=== PATIENT | male | born 1940 | race Caucasian/White ===

== ENCOUNTER 2022-07-28 17:03 | Emergency (ER) | payer BC, MEDICARE ==
[~2022-07-28] VITALS: Ht 180.3 cm; Wt 97.2 kg
[~2022-07-28 17:03] MED LIST: AMLO5TAB PO; ASPI-1265 PO; CLOP-32 PO; EVOL140P3 SQ; FLUO15OI2 TP; HYDR25TA4 PO; METO50TA17 PO; OMEP20TA43 PO
[2022-07-28 17:19] VITALS: BP 164/83
[2022-07-28 17:27] LABS: BASOPHILS # (AUTO) 0.1 X10'3 (0-0.2); BASOPHILS % (AUTO) 1.1 % (0-1); EOSINOPHILS # (AUTO) 0.5 X10'3 (0-0.9); EOSINOPHILS % (AUTO) 4.7 % (0-6); LYMPHOCYTES # (AUTO) 2.4 X10'3 (1.1-4.8); LYMPHOCYTES % (AUTO) 21.7 % (21-51); MEAN CORPUSCULAR HEMOGLOBIN 31.8 PG (27.0-31.0); MEAN CORPUSCULAR HGB CONC 33.4 g/dL (33.0-36.5); MEAN CORPUSCULAR VOLUME 95.3 FL (78-98); MEAN PLATELET VOLUME 9.1 FL (7.4-10.4); MONOCYTES # (AUTO) 0.9 X10'3 (0-0.9); NEUTROPHILS % (AUTO) 64.5 % (42-75); PLATELET COUNT 188 X10'3 (140-440); RED BLOOD COUNT 5.35 X10'6 (4.70-6.10); RED CELL DISTRIBUTION WIDTH 13.6 % (11.5-14.5); WHITE BLOOD COUNT 10.9 X10'3 (4.5-11.0)
[2022-07-28 18:18] LABS: ALANINE AMINOTRANSFERASE 25 U/L (12-78); ALBUMIN 4.2 G/DL (3.4-5.0); ALBUMIN/GLOBULIN RATIO 1.4 (1.1-1.5); ALKALINE PHOSPHATASE 80 IU/L (46-116); ANION GAP 7 (8-16); ASPARTATE AMINO TRANSFERASE 19 U/L (10-37); BILIRUBIN,TOTAL 0.9 MG/DL (0.1-1.0); BLOOD UREA NITROGEN 26 MG/DL (7-18); BUN/CREATININE RATIO 18.4 (10.0-20.0); CHLORIDE 102 MMOL/L (99-107); CREATININE 1.41 MG/DL (0.60-1.10); GLUCOSE 112 MG/DL (70-104); POTASSIUM 4.3 MMOL/L (3.5-5.1); SODIUM 138 MMOL/L (135-145); TOTAL CARBON DIOXIDE 29.4 MMOL/L (24-32); TOTAL PROTEIN 7.3 G/DL (6.4-8.2); eGFR 48 ML/MIN
[2022-07-28 18:27] LABS: MAGNESIUM 2.3 MG/DL (1.5-2.4)
== END 2022-07-28 22:01 | disposition home or self-care (01) ==
LOC: ER 17:04
DX: R07.9 Chest pain, unspecified (principal); I11.0 Hypertensive heart disease with heart failure; E78.00 Pure hypercholesterolemia, unspecified; E11.9 Type 2 diabetes mellitus without complications; F31.9 Bipolar disorder, unspecified; Z88.0 Allergy status to penicillin; Z79.899 Other long term (current) drug therapy
CPT/HCPCS: 36415; 71045; 80053; 83735; 83880; 84484; 85025; 93005; 99285

== ENCOUNTER 2024-03-26 05:42 | Day surgery (SDC) | payer MEDICARE, BC ==
[2024-03-20 14:56] LABS: BASOPHILS # (AUTO) 0.1 X10'3 (0-0.2); BASOPHILS % (AUTO) 0.6 % (0-1); EOSINOPHILS # (AUTO) 0.5 X10'3 (0-0.9); EOSINOPHILS % (AUTO) 4.3 % (0-6); LYMPHOCYTES # (AUTO) 1.8 X10'3 (1.1-4.8); LYMPHOCYTES % (AUTO) 17.2 % (21-51); MEAN CORPUSCULAR HEMOGLOBIN 32.3 PG (27.0-31.0); MEAN CORPUSCULAR HGB CONC 33.6 g/dL (33.0-36.5); MEAN CORPUSCULAR VOLUME 96.2 FL (78-98); MEAN PLATELET VOLUME 8.8 FL (7.4-10.4); MONOCYTES # (AUTO) 0.9 X10'3 (0-0.9); NEUTROPHILS # (AUTO) 7.5 X10'3 (1.8-7.7); NEUTROPHILS % (AUTO) 69.9 % (42-75); PRE OP HEMATOCRIT 48.4 % (42.0-52.0); PRE OP HEMOGLOBIN 16.3 g/dL (14.0-17.9); PRE OP PLATELET COUNT 203 X10'3 (140-440); PRE OP WHITE BLOOD COUNT 10.7 10'3 (4.8-10.8); RED BLOOD COUNT 5.03 X10'6 (4.70-6.10); RED CELL DISTRIBUTION WIDTH 13.1 % (11.5-14.5)
[2024-03-20 15:14] LABS: ALBUMIN 3.9 G/DL (3.4-5.0); ALBUMIN/GLOBULIN RATIO 1.2 (1.1-1.5); ALKALINE PHOSPHATASE 87 IU/L (46-116); BLOOD UREA NITROGEN 30 MG/DL (7-18); BUN/CREATININE RATIO 18.8 (10.0-20.0); CALCIUM 9.6 MG/DL (8.5-10.1); CHLORIDE 102 MMOL/L (99-107); PRE OP ALT 29 U/L (30-65); PRE OP ANION GAP 6 (8-16); PRE OP AST 19 U/L (10-37); PRE OP BILIRUB, TOTAL 0.5 MG/DL (0.0-1.0); PRE OP GLUCOSE 106 MG/DL (70-104); PRE OP POTASSIUM 4.3 MMOL/L (3.4-5.1); PRE OP SODIUM 136 MMOL/L (135-145); TOTAL CARBON DIOXIDE 28.5 MMOL/L (24-32); TOTAL PROTEIN 7.2 G/DL (6.4-8.2); eGFR 42 ML/MIN
[2024-03-26] VITALS (24 sets, daily range): BP systolic 89–144; BP diastolic 44–74; PULSE 54–85; RESP 10–21; TEMP 97.7; O2SAT 86–100
[~2024-03-26] VITALS: Ht 177.8 cm; Wt 95.7 kg
[~2024-03-26 05:42] MED LIST changes: -AMLO5TAB PO; -ASPI-1265 PO; +ASPI81TA52 PO; +CHLO50TA PO; -CLOP-32 PO; -EVOL140P3 SQ; -FLUO15OI2 TP; -HYDR25TA4 PO; +LOSA100T58 PO; -METO50TA17 PO; -OMEP20TA43 PO; +STOOL SOFTENER PO; +VITAMIN B-12 PO; +VITAMIN D3 PO; +VITAMIN K2 PO
[2024-03-26] MEDS: famotidine 20mg tablet PO ONE (06:25)
[2024-03-26] MEDS: tamsulosin 0.4mg capsule PO ONE (06:25)
[2024-03-26] MEDS: ringers solution, lacted 1,000 ML IV SCH (06:26)
[2024-03-26] MEDS: ceFAZolin 2gm in dextrose, iso 50 ML IV ONE (06:26)
[2024-03-26] MEDS ORDERED: BUPIVAcaine 2.5mg/ml inj 50ml vial (contains preservative) ONE (06:54)
[2024-03-26] MEDS ORDERED: LIDOcaine 1% 30ml preserv. free vial ONE (06:54)
[2024-03-26] MEDS ORDERED: fentaNYL/PF 50MCG/1 ML 2ML syringe ONE (07:13)
[2024-03-26] MEDS ORDERED: midazolam 1 mg/ML 2ml injection ONE (07:13)
[2024-03-26] MEDS ORDERED: meperidine/PF 25mg/ml syringe IV PRN ×2 (07:20)
[2024-03-26] MEDS ORDERED: morphine 4 MG/ML inj SYRINge IV PRN (07:20)
[2024-03-26] MEDS ORDERED: proCHLORperazine 10 MG/2 ml inj IV PRN (07:20)
[2024-03-26] MEDS ORDERED: morphine 2 MG/ML inj. syringe IV PRN (07:20)
[2024-03-26] MEDS ORDERED: ringers solution, lacted 1,000 ML IV SCH (07:20)
[2024-03-26] MEDS ORDERED: sevoflurane 250ml liquid IH ONE (07:26)
[2024-03-26] MEDS: BUPIVAcaine 0.25% w/Epi /PF 30ml vial IJ ONE (07:50)
[2024-03-26] MEDS ORDERED: dexamethasone sod phosphate 4mg/ml inj. ONE (09:01)
[2024-03-26] MEDS ORDERED: neostigmine methylsulfate 1 MG/ML 10ml vial ONE (09:02)
[2024-03-26] MEDS ORDERED: ondansetron/PF 4mg/2ml inj ONE (09:02)
[2024-03-26] MEDS ORDERED: propofol inj 20 ML IV ONE (09:02)
[2024-03-26] MEDS ORDERED: glycopyrrolate 0.2mg/ml inj ONE (09:02)
[2024-03-26] MEDS ORDERED: rocuronium 10mg/ml inj IV ONE (09:02)
[2024-03-26] MEDS ORDERED: acetaminophen 1,000mg/100ml IV 100 ML IV ONE (09:04)
[2024-03-26] MEDS: meperidine/PF 25mg/ml syringe IV PRN (09:35)
[2024-03-26] MEDS ORDERED: HYDROcodone/acetaminophen 5mg/325mg tablet PO PRN (09:35)
[2024-03-26] MEDS: ondansetron/PF 4mg/2ml inj IV PRN (13:36)
[2024-03-26] MEDS: ibuprofen tablet 400 MG TABLET PO ONE (14:50)
[2024-03-26] MEDS: chlorthalidone 25mg tablet PO ONE (14:50)
[2024-03-26] MEDS ORDERED: LidoCAINE 2% Topical Jelly 11mL syringe (UROJET) TOP ONE (15:15)
== END 2024-03-26 16:41 | disposition home or self-care (01) ==
LOC: PAS 05:42
PROVIDERS: ATTEND Surgery
DX: K42.9 Umbilical hernia without obstruction or gangrene (principal); K40.90 Unilateral inguinal hernia, without obstruction or gangrene, not specified as recurrent; K40.91 Unilateral inguinal hernia, without obstruction or gangrene, recurrent; I10 Essential (primary) hypertension; I25.10 Atherosclerotic heart disease of native coronary artery without angina pectoris; E78.5 Hyperlipidemia, unspecified; E66.9 Obesity, unspecified; I25.2 Old myocardial infarction; Z87.891 Personal history of nicotine dependence; Z79.82 Long term (current) use of aspirin; Z79.899 Other long term (current) drug therapy; Z95.4 Presence of other heart-valve replacement; Z98.890 Other specified postprocedural states; Z68.30 Body mass index [BMI] 30.0-30.9, adult; Z88.0 Allergy status to penicillin
CPT/HCPCS: 36415; 49591; 49650; 49651; 80053; 82948; 85025; A4215; A4314; A4618; C1781; J0131; J0690; J1100; J2003; J2175; J2250; J2405; J2704; J2710; J3010; J3490; J7030; J7120; Z7506; Z7508; Z7512; Z7610; S0020